=== PATIENT | female | born 1990 | race Caucasian/White ===

== ENCOUNTER 2017-04-13 01:22 | Inpatient (IN) ==
[2017-04-13] MEDS ORDERED: NUBAIN IV ONE (02:22)
[2017-04-13] MEDS ORDERED: LR 1,000 ML IV SCH (02:24)
[2017-04-13] MEDS ORDERED: STADOL IV PRN (02:24)
[2017-04-13] MEDS ORDERED: TYLENOL PO PRN (02:24)
[2017-04-13] MEDS ORDERED: PEPCID PO PRN (02:24)
[2017-04-13] MEDS ORDERED: KEFZOL 1 GM/D5W 1 GM/50 ML IVPB IV PRN (02:24)
[2017-04-13] MEDS ORDERED: PEPCID IV PRN (02:24)
[2017-04-13] MEDS ORDERED: ZOFRAN IV PRN (02:24)
[2017-04-13] MEDS ORDERED: PITOCIN 30 UNITS/LR 30 UNITS/500 ML IV.SOLN IV SCH (02:24)
[2017-04-13] MEDS ORDERED: SODIUM CHLORIDE 0.9% INJ SCH (02:30)
[2017-04-13 03:11] LABS: MANUAL DIFF NEEDED? NO
[2017-04-13 03:11] LABS: URINE SOURCE VOIDED
[2017-04-13 03:15] LABS: BASO% 0.4 % (0.0-0.8); EOS# 0.25 X1000 (0.0-0.7); EOS% 2.4 % (0.0-10.0); HEMATOCRIT 32.2 % (37.0-47.0); IMM GRAN# 0.04 X1000 (0.0-0.04); IMM GRAN% 0.4 % (0.0-0.5); LYMPH# 2.42 X1000 (1.2-3.4); LYMPH% 23.5 % (20.5-51.1); MCHC 34.2 g/dL (33-37); MONO# 0.68 X1000 (0.11-0.59); MONO% 6.6 % (1.7-9.3); NEUT% 66.7 % (42.2-75.2); PLT 187 X1000 (130-400); RBC 3.79 XMIL (4.2-5.4)
[2017-04-13 03:23] LABS: UR AMPHETAMINES QUAL NONE DETECTED (NONE DETECT); UR BARBITUATES QUAL NONE DETECTED (NONE DETECT); UR BENZODIAZEPIN QUAL NONE DETECTED (NONE DETECT); UR CANNABINOIDS QUAL NONE DETECTED (NONE DETECT); UR COCAINE QUAL NONE DETECTED (NONE DETECT); UR MDMA QUAL NONE DETECTED (NONE DETECT); UR METHADONE QUAL NONE DETECTED (NONE DETECT); UR METHAMPHETAMINE QUAL NONE DETECTED (NONE DETECT); UR OPIATES QUAL NONE DETECTED (NONE DETECT); UR OXYCODONE QUAL NONE DETECTED (NONE DETECT); UR PCP QUAL NONE DETECTED (NONE DETECT); UR TCA QUAL NONE DETECTED (NONE DETECT)
[2017-04-13 03:27] LABS: BILIRUBIN URINE NEGATIVE (NEGATIVE); BLOOD URINE NEGATIVE (NEGATIVE); CLARITY CLEAR (CLEAR); COLOR YELLOW; GLUCOSE URINE NEGATIVE (NEGATIVE); LEUKOCYTES URINE 1+ (NEGATIVE); NITRITE URINE NEGATIVE (NEGATIVE); PROTEIN URINE NEGATIVE (NEGATIVE); SP GRAVITY URINE 1.005; UROBILINOGEN URINE NORMAL
[2017-04-13] MEDS ORDERED: NAROPIN 0.2% ONE (03:31)
[2017-04-13] MEDS ORDERED: FENTANYL-BUPIV-NS 2 MCG-0.1% 200 ML EPIDURAL SCH (04:00)
[2017-04-13] MEDS ORDERED: MINERAL OIL ONE (07:31)
[2017-04-13] MEDS ORDERED: XYLOCAINE-MPF 1% INJ ONE (07:32)
[2017-04-13] MEDS ORDERED: PERCOCET-5 PO PRN (09:43)
[2017-04-13] MEDS ORDERED: HYDROXYZINE IM PRN (09:43)
[2017-04-13] MEDS ORDERED: HYDROXYZINE PO PRN (09:43)
[2017-04-13] MEDS ORDERED: BENADRYL IV PRN (09:43)
[2017-04-13] MEDS ORDERED: BOOSTRIX VACCINE IM ONE (09:43)
[2017-04-13] MEDS ORDERED: PITOCIN 20 UNITS/LR 20 UNITS/1,000 ML IV.SOLN IV SCH (09:43)
[2017-04-13] MEDS ORDERED: PERI MEDS (DERMOPLAST/NUPERCAINAL/TUCKS) MISC PRN (09:43)
[2017-04-13] MEDS ORDERED: XYLOCAINE-MPF 1% INJ PRN (09:43)
[2017-04-13] MEDS ORDERED: PERCOCET-10 PO PRN (09:43)
[2017-04-13] MEDS ORDERED: PITOCIN 30 UNITS/LR 30 UNITS/500 ML IV.SOLN IV ONE (09:43)
[2017-04-13] MEDS ORDERED: MINERAL OIL PO PRN (09:43)
[2017-04-13] MEDS ORDERED: PITOCIN IM PRN (09:43)
[2017-04-13] MEDS ORDERED: BENADRYL PO PRN (09:43)
[2017-04-13] MEDS ORDERED: CYTOTEC PO PRN (09:43)
[2017-04-13] MEDS ORDERED: AMBIEN PO PRN (09:43)
[2017-04-13] MEDS ORDERED: NORCO-5 PO PRN (09:43)
[2017-04-13] MEDS ORDERED: M-M-R II VACCINE SUBQ ONE (09:43)
[2017-04-13] MEDS: MOTRIN PO PRN ×2 (12:26→20:50)
[2017-04-13] MEDS: NORCO-10 PO PRN ×2 (15:27→20:50)
[2017-04-13] MEDS: PERICOLACE PO SCH (20:50)
[2017-04-14] MEDS: NORCO-10 PO PRN ×2 (01:03→21:18)
[2017-04-14 06:26] LABS: MANUAL DIFF NEEDED? NO
[2017-04-14 06:51] LABS: BASO% 0.3 % (0.0-0.8); EOS# 0.26 X1000 (0.0-0.7); EOS% 2.2 % (0.0-10.0); HEMATOCRIT 28.1 % (37.0-47.0); HEMOGLOBIN 8.9 g/dL (12.0-16.0); IMM GRAN# 0.02 X1000 (0.0-0.04); IMM GRAN% 0.2 % (0.0-0.5); LYMPH# 2.71 X1000 (1.2-3.4); MCH 28.1 PG (27-31); MCHC 31.7 g/dL (33-37); MCV 88.6 FL (81-99); MONO# 0.98 X1000 (0.11-0.59); MONO% 8.3 % (1.7-9.3); MPV 11.6 FL (7.4-10.4); PLT 178 X1000 (130-400); RBC 3.17 XMIL (4.2-5.4)
[2017-04-14] MEDS: MOTRIN PO PRN ×2 (07:11→15:07)
[2017-04-14] MEDS: PERICOLACE PO SCH (21:17)
[2017-04-15] MEDS: NORCO-10 PO PRN (01:44)
[2017-04-15] MEDS: MOTRIN PO PRN (01:44)
[2017-04-15 08:15] VITALS: BP 108/64
== END 2017-04-15 11:50 | disposition home or self-care (01) ==
LOC: P.OPLD 01:22 → P.LD 01:24
PROVIDERS: ADMIT Obstetrics & Gynecology; ATTEND Obstetrics & Gynecology